=== PATIENT | male | born 1955 | race Caucasian/White ===

== ENCOUNTER 2022-10-14 14:48 | Observation (INO) | payer MEDICARE, OTHER, SELFPAY ==
[2022-10-14] VITALS (27 sets, daily range): BP systolic 155–195; BP diastolic 73–95; PULSE 69–83; RESP 18–20; TEMP 36.6–36.8; O2SAT 95–98; BMI 30.1; BMI 29.9
--- NOTE | 2022-10-14 15:17 | CRLHL7_ITS ---
For Patients: As a result of the Century Cures Act, medical imaging exams and procedure reports are released immediately into your electronic medical record. You may view this report before your referring provider. If you have questions, please contact your health care provider. Dictated by: Benigno Dunbar MD @ 10/14/2022 15:46:20 (Electronically Signed)
[2022-10-14 15:43] LABS: Basophils Percent Auto 0.5 % (0.0-3.0); Eosinophils Percent Auto 1.6 % (0.0-7.0); Hematocrit 42.2 % (37.0-53.0); Hemoglobin* 14.3 gm/dL (13.5-17.5); Lymphocytes Percent Auto 31.3 % (20-44); Mean Corpuscular HGB Conc 34 gm/dL (32-36); Mean Corpuscular Hemoglobin 32 pg (26-34); Mean Corpuscular Volume 94 fL (80-100); Monocytes Percent Auto 14.3 % (0.0-11.0); Neutrophils Percent Auto 52.3 % (42.0-72.0); Platelet Count* 129 K/uL (140-440); RDW Coefficient of Variation % 13.8 % (11.5-15.5); White Blood Count* 3.84 K/uL (4.50-11.00)
[2022-10-14 15:46] LABS: Troponin, Point-of-Care* 0.01 ng/ml (0.01-0.04)
[2022-10-14 15:47] LABS: Slide Review Reflex No
[2022-10-14 15:56] LABS: Chloride* 109 mmol/L (96-114); Sodium* 137 mmol/L (135-149)
[2022-10-14 15:57] LABS: Potassium* 4.2 mmol/L (3.6-5.1)
[2022-10-14 15:59] LABS: Aspartate Amino Transferase* 22 U/L (12-35); Bilirubin Direct* 0.2 mg/dL (0.0-0.5); Bilirubin Total* 0.6 mg/dL (0.1-1.5); Carbon Dioxide* 25 mmol/L (20-32); Creatinine* 0.9 mg/dL (0.5-1.5); Estimated Glomerular Filt Rate 93 ml/min; Total Protein* 6.7 g/dL (6.0-8.3)
[2022-10-14 16:00] LABS: Alanine Aminotransferase* 18 U/L (4-50); Alkaline Phosphatase* 88 U/L (40-150); Blood Urea Nitrogen* 16 mg/dL (7-30); Calcium* 8.9 mg/dL (8.4-10.6); D Dimer Quantitative* 0.78 ug/ml (0.00-0.50); Glucose* 86 mg/dL (60-115)
[2022-10-14 16:03] LABS: C Reactive Protein* < 0.5 mg/dL (0.5-1.0)
[2022-10-14 16:10] LABS: NT Pro B Type NatriureticPept* 202 pg/mL
[2022-10-14] MEDS: ASPIRIN 81 MG TAB.CHEW 324 MG PO (16:16)
--- NOTE | 2022-10-14 16:17 | ED.GENADULT ---
HPI - General Adult General Date Seen: 10/14/22 Chief complaint: Chest Pain Stated complaint: Tightness in Chest Time Seen by Provider: 10/14/22 15:03 Source: patient History of Present Illness HPI narrative: Patient is a 67-year-old male who presents for evaluation of chest tightness. He says that about an hour prior to arrival he was carrying 2 5 gal jugs of care seen which he estimates was about 80 lb. While he was doing this, he says he developed tightness in his central chest which he rates as severe. He says that he put the jugs down, and after about 2 minutes the tightness resolved. It was associated with shortness of breath, and a little bit of lightheadedness. He did not have any fainting. No nausea, he says that he felt like he would maybe might break into a sweat but he did not. He notes that over the past couple of weeks he has been having more difficulty with exertion. He says he will get very mild chest tightness when he goes up a flight of stairs for example, any thinks that he has subconsciously has altered his behavior so that he is exerting himself less as a result. He does note that he has a history of ND in his mid 40s, he says that his symptoms currently do not feel like what he remembers his ND feeling like. He says that in his mid 50s he was having some nausea and lightheadedness, had an angiogram and a couple of stents were placed at that time. A couple of years ago, he had some symptoms that led to a stress test which he reports was unremarkable. He does note that he has had some extra phlegm in his throat with eating the past couple of weeks, but otherwise has not had upper respiratory symptoms. Has not run fevers. Has had a little bit of a cough. Continues to smoke. He has not had lower extremity swelling or pain. He has a history of arterial surgery and both lower extremities. He has a history of small-bowel obstruction and hernia surgery. Related Data Home Medications Medication Instructions Recorded Confirmed aspirin 81 mg tablet,delayed 162 mg PO DAILY 10/14/22 10/14/22 release (Adult Low Dose Aspirin) atorvastatin 40 mg tablet 40 mg PO HS 10/14/22 10/14/22 citalopram 20 mg tablet 20 mg PO DAILY 10/14/22 10/14/22 losartan 100 mg tablet 100 mg PO DAILY 10/14/22 10/14/22 nitroglycerin 0.4 mg sublingual 0.4 mg sublingual Q5M PRN chest 10/14/22 10/14/22 tablet pain tamsulosin 0.4 mg capsule 0.4 mg PO DAILY 10/14/22 10/14/22 Allergies Allergy/AdvReac Type Severity Reaction Status Date / Time No Known Drug Allergies Allergy Verified 10/14/22 14:58 Review of Systems Status of ROS: Reports: 10 or more systems reviewed and unremarkable except as noted in History and below [facility] Medical History (Updated 10/14/22 @ 19:34 by Ming Reeder MD) Coronary artery disease Diverticulitis Hyperlipidemia Hypertension Peripheral vascular disease Postoperative urinary retention Small bowel obstruction Tobacco use disorder Surgical History (Updated 10/14/22 @ 19:28 by Ming Reeder MD) History of aorto-femoral bypass History of incisional hernia repair Family History (Updated 10/14/22 @ 19:29 by Ming Reeder MD) Father Coronary artery disease Mother Coronary artery disease Brother Coronary artery disease Social History (Updated 10/14/22 @ 19:30 by Ming Reeder MD) Narrative: Patient is , 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 Code status is full. Ongoing cigarette smoking with greater than 40 pack-year history. Does not drink alcohol or use recreational drugs. Highest level of school completed/degree received: some college, no degree Smoking Status: Current every day smoker What tobacco products do you use: cigarettes Smoking packs per day: 1 Smoking cigarettes per day: 20.0 Years smoked: 40 Smoking pack-years: 40.00 Do you use any of these nicotine containing products: None Second hand tobacco smoke exposure: Yes How often do you have a drink containing alcohol: never How often do you have six or more drinks on one occasion: Never AUDIT-C Alcohol total score: 0 Non-prescribed substance use: denies use Caffeine: Yes service: No Exam Narrative: Exam Narrative: Vital signs as noted above. In general, an alert, well-appearing patient. Head: Normocephalic, atraumatic. Eyes: Pupils are equal reactive. Extraocular movements are full. Conjunctivae are normal. ENT: Mucous membranes are moist. Throat is normal. Neck: Supple without lymphadenopathy. Heart: Regular rate and rhythm. No murmur or rub. Lungs: Clear bilaterally. No increased work of breathing, crackles or wheezes. Abdomen: Soft and nontender. No organomegaly. Extremities: Well perfused. No edema. No calf tenderness. Pulses intact. Neurologic: Patient is alert and oriented to person and place. Speech is fluent. Face is symmetric. Moves all extremities equally. Affect: Normal. Skin: Warm and dry. Well perfused. Const: Vital Signs, click to edit/add: Vital Signs - 24 hr 10/14/22 14:59 10/14/22 14:58 10/14/22 16:01 Temperature 98.3 F Pulse Rate Pulse Rate [Apical ] 83 73 Respiratory Rate 20 18 Blood Pressure [Ri ght Upper Arm] 176/77 H 155/73 H Pulse Oximetry 98 97 95 Oxygen Delivery Me thod Room Air Room Air 10/14/22 15:51 10/14/22 16:00 Temperature Pulse Rate 74 76 Pulse Rate [Apical ] Respiratory Rate Blood Pressure [Ri ght Upper Arm] Pulse Oximetry 95 95 Oxygen Delivery Me thod Documenting provider has reviewed patient's vital signs: yes Course Course Hospital Course: On arrival, patient had an EKG which by my review shows a normal sinus rhythm, ventricular rate of 92 beats per minute. No acute ST segment changes. EKG is unremarkable. His initial point of care troponin is 0.01. Given his exertional symptoms over the past couple of weeks, certainly there is a concern for new anginal symptoms. Other possibilities would include pneumonia, pulmonary embolism, pulmonary edema, upper respiratory infection, anemia, bronchospasm. Patient's labs show a mildly depressed white blood cell count of 3.8, hemoglobin is 14.3. Platelets are mildly low at 129. His D-dimer is slightly elevated at 0.78, though given his age, lack of high clinical suspicion, likelihood of angina as a more reasonable explanation of his symptoms, I do not think he needs further evaluation for pulmonary embolism. He is not hypoxic or tachycardic, and does not have other risk factors for pulmonary embolism. Metabolic panel is unremarkable. LFTs are normal and CRP is less than 0.5. COVID, flu, RSV are all negative. Troponin at time 0 and 2 hours is negative, patient was without further complaints while here. Heart score is 6, placing him in the moderate risk category. Symptoms are concerning for new angina in the setting of someone with known coronary artery disease. I did talk with the primary special educator on-call at [facility], who felt the patient should be admitted and should not be discharged with out having had evocative testing of some kind. I am seeing him on Saturday, which means that stress testing here would not be available until Saturday. [facility] do not have any bed at this time, though [facility] was willing to put him on their wait list. At this time, plan is to admit him to [place], if [facility] gets bed in the near future he could be transferred there for stress testing tomorrow. Otherwise, he will have a stress test here on Saturday. Continue to trend troponins. Patient was given an aspirin here in the ER. Given negative troponins I did not give other medications for non STEMI. Vital Signs Vital signs: Initial Vital Signs Pulse Oximetry 97 10/14/22 14:58 Vital Signs Pulse Oximetry 97 10/14/22 14:58 Temperature 97.9 F 10/15/22 15:00 Pulse Rate 78 10/15/22 17:21 Respiratory Rate 16 10/15/22 15:00 Blood Pressure 148/71 H 10/15/22 15:00 Pulse Oximetry 96 10/15/22 15:00 Oxygen Delivery Method 10/15/22 15:00 Medical Decision Making Lab Data Labs: Lab Results 10/14/22 10/14/22 10/14/22 Range/Units 15:30 15:30 15:30 WBC 3.84 L (4.50-11.00) K/uL RBC 4.50 (4.30-5.90) m/uL Hgb 14.3 (13.5-17.5) gm/dL Hct 42.2 (37.0-53.0) % MCV 94 (80-100) fL MCH 32 (26-34) pg MCHC 34 (32-36) gm/dL RDW Coeff of [place] 13.8 (11.5-15.5) % Plt Count 129 L (140-440) K/uL Neut % (Auto) 52.3 (42.0-72.0) % Lymph % (Auto) 31.3 (20-44) % [place] % (Auto) 14.3 H (0.0-11.0) % Eos % (Auto) 1.6 (0.0-7.0) % Baso % (Auto) 0.5 (0.0-3.0) % Neut # (Auto) 2.00 (1.7-7.0) K/uL Lymph # (Auto) 1.20 (0.90-2.90) K/uL [place] # (Auto) 0.50 (0.00-0.90) K/UL Eos # (Auto) 0.10 (0.00-0.50) K/uL Baso # (Auto) 0.00 (0.00-0.30) K/uL Abs Immat Gran (auto) 0.00 (0.00-0.30) K/uL Imm/Tot Granulo (auto) 0.0 % D-Dimer Quant (PE/DVT) 0.78 H (0.00-0.50) ug/ml Sodium 137 (135-149) mmol/L Potassium 4.2 (3.6-5.1) mmol/L Chloride 109 (96-114) mmol/L Carbon Dioxide 25 (20-32) mmol/L BUN 16 (7-30) mg/dL Creatinine 0.9 (0.5-1.5) mg/dL Estimated Creat Clear 73.00 Estimated GFR 93 ml/min Glucose 86 (60-115) mg/dL Calcium 8.9 (8.4-10.6) mg/dL Total Bilirubin 0.6 (0.1-1.5) mg/dL Direct Bilirubin 0.2 (0.0-0.5) mg/dL AST 22 (12-35) U/L ALT 18 (4-50) U/L Alkaline Phosphatase 88 (40-150) U/L C-Reactive Protein < 0.5 L (0.5-1.0) mg/dL NT-Pro-B Natriuret Pep 202 pg/mL Total Protein 6.7 (6.0-8.3) g/dL Albumin 4.0 (3.3-5.0) g/dL SARS-CoV-2 (PCR) (Negative) Influenza Type A (PCR) (Negative) Influenza Type B (PCR) (Negative) RSV (PCR) (Negative) POC Troponin I (0.01-0.04) ng/ml 10/14/22 10/14/22 10/14/22 Range/Units 15:30 15:30 17:25 WBC (4.50-11.00) K/uL RBC (4.30-5.90) m/uL Hgb (13.5-17.5) gm/dL Hct (37.0-53.0) % MCV (80-100) fL MCH (26-34) pg MCHC (32-36) gm/dL RDW Coeff of [place] (11.5-15.5) % Plt Count (140-440) K/uL Neut % (Auto) (42.0-72.0) % Lymph % (Auto) (20-44) % [place] % (Auto) (0.0-11.0) % Eos % (Auto) (0.0-7.0) % Baso % (Auto) (0.0-3.0) % Neut # (Auto) (1.7-7.0) K/uL Lymph # (Auto) (0.90-2.90) K/uL [place] # (Auto) (0.00-0.90) K/UL Eos # (Auto) (0.00-0.50) K/uL Baso # (Auto) (0.00-0.30) K/uL Abs Immat Gran (auto) (0.00-0.30) K/uL Imm/Tot Granulo (auto) % D-Dimer Quant (PE/DVT) (0.00-0.50) ug/ml Sodium (135-149) mmol/L Potassium (3.6-5.1) mmol/L Chloride (96-114) mmol/L Carbon Dioxide (20-32) mmol/L BUN (7-30) mg/dL Creatinine (0.5-1.5) mg/dL Estimated Creat Clear Estimated GFR ml/min Glucose (60-115) mg/dL Calcium (8.4-10.6) mg/dL Total Bilirubin (0.1-1.5) mg/dL Direct Bilirubin (0.0-0.5) mg/dL AST (12-35) U/L ALT (4-50) U/L Alkaline Phosphatase (40-150) U/L C-Reactive Protein (0.5-1.0) mg/dL NT-Pro-B Natriuret Pep pg/mL Total Protein (6.0-8.3) g/dL Albumin (3.3-5.0) g/dL SARS-CoV-2 (PCR) Negative SARS-CoV-2 (Negative) Influenza Type A (PCR) Negative PCR FLU A (Negative) Influenza Type B (PCR) Negative PCR FLU B (Negative) RSV (PCR) Negative PCR RSV (Negative) POC Troponin I 0.01 0.01 (0.01-0.04) ng/ml Discharge Plan Discharge Clinical Impression: Unstable angina pectoris Patient Disposition: Admitted As Inpatient Condition: Stable
[2022-10-14 16:25] LABS: PCR FLU A Negative PCR FLU A (Negative); PCR FLU B Negative PCR FLU B (Negative); PCR RSV Negative PCR RSV (Negative)
[2022-10-14 16:26] LABS: SARS PCR* Negative SARS-CoV-2 (Negative)
[2022-10-14 17:39] LABS: Troponin, Point-of-Care* 0.01 ng/ml (0.01-0.04)
--- NOTE | 2022-10-14 18:34 | ED.NURSE ---
hs aware of admission. has been up to void.
--- NOTE | 2022-10-14 18:41 | ED.NURSE ---
dr glez in in the room interviewing Walter. is at bs.
--- NOTE | 2022-10-14 19:16 | PM.IMHP1 ---
Hospitalist- H&P: HPI History of Present Illness Date Seen: 10/14/22 Chief complaint: Tightness in Chest Narrative: David Leach is a 67 year old male with known coronary disease admitted to the hospital with increasing chest tightness. Patient reports over the last 2 weeks he has had onset of worsening fatigue, exertional dyspnea and chest tightness. Today he was carrying 2- 5 gal jugs weighing about 80 lb when he had onset of fairly severe chest tightness and dyspnea. He stopped and put the jugs down. It took at least 2 minutes for his chest tightness and dyspnea to resolve. He reports being less active in the last 2 weeks because of exertional dyspnea and chest tightness. Review of Systems Narrative: He reports he has generally been doing well except as noted above. Specifically denies fever, cough, cold, rest chest pain, nausea, vomiting, abdominal pain, bowel or bladder problems, bleeding or clotting problems. [facility] Medical History (Updated 10/14/22 @ 19:34 by Ming Reeder MD) Coronary artery disease Diverticulitis Hyperlipidemia Hypertension Peripheral vascular disease Postoperative urinary retention Small bowel obstruction Tobacco use disorder Surgical History (Updated 10/14/22 @ 19:28 by Ming Reeder MD) History of aorto-femoral bypass History of incisional hernia repair Family History (Updated 10/14/22 @ 19:29 by Ming Reeder MD) Father Coronary artery disease Mother Coronary artery disease Brother Coronary artery disease Social History (Updated 10/14/22 @ 19:30 by Ming Reeder MD) Narrative: Patient is , 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 Code status is full. Ongoing cigarette smoking with greater than 40 pack-year history. Does not drink alcohol or use recreational drugs. Smoking Status: Current every day smoker What tobacco products do you use: cigarettes Smoking packs per day: 1 Smoking cigarettes per day: 20.0 Years smoked: 40 Smoking pack-years: 40.00 Do you use any of these nicotine containing products: None Second hand tobacco smoke exposure: Yes How often do you have a drink containing alcohol: never How often do you have six or more drinks on one occasion: Never AUDIT-C Alcohol total score: 0 Non-prescribed substance use: denies use service: No Meds Home Medications and Allergies Home Medications Medication Instructions Recorded Confirmed Type aspirin 81 mg tablet,delayed 162 mg PO DAILY 10/14/22 10/14/22 History release (Adult Low Dose Aspirin) atorvastatin 40 mg tablet 40 mg PO HS 10/14/22 10/14/22 History citalopram 20 mg tablet 20 mg PO DAILY 10/14/22 10/14/22 History losartan 100 mg tablet 100 mg PO DAILY 10/14/22 10/14/22 History nitroglycerin 0.4 mg sublingual 0.4 mg sublingual Q5M PRN chest 10/14/22 10/14/22 History tablet pain tamsulosin 0.4 mg capsule 0.4 mg PO DAILY 10/14/22 10/14/22 History Allergies Allergy/AdvReac Type Severity Reaction Status Date / Time No Known Drug Allergies Allergy Verified 10/14/22 14:58 Exam Narrative: Exam Narrative: He is alert and appears in no distress. Currently without significant symptoms. Eyes are normal. Oropharynx normal. Neck is supple without mass or adenopathy. No jugular venous distension. Respirations are clear to auscultation. Cardiovascular: S1, S2, regular rate and rhythm. No murmur gallop or rub. Abdomen: Bowel sounds active. Abdomen is soft without tenderness or mass. Well-healed incision from aortic surgery without evidence of incisional hernia. External genitalia normal. Extremities with intact pedal pulses. No edema. Moves all 4 extremities well. No rash. Const: Vital Signs, click to edit/add: Vital Signs - 24 hr 10/14/22 14:59 10/14/22 14:58 10/14/22 16:01 Temperature 98.3 F Pulse Rate Pulse Rate [Apical ] 83 73 Respiratory Rate 20 18 Blood Pressure Blood Pressure [Ri ght Upper Arm] 176/77 H 155/73 H Pulse Oximetry 98 97 95 Oxygen Delivery Me thod Room Air Room Air 10/14/22 15:51 10/14/22 16:00 10/14/22 16:01 Temperature Pulse Rate 74 76 75 Pulse Rate [Apical ] Respiratory Rate Blood Pressure 155/73 H Blood Pressure [Ri ght Upper Arm] Pulse Oximetry 95 95 96 Oxygen Delivery Me thod 10/14/22 16:15 10/14/22 16:30 10/14/22 16:32 Temperature Pulse Rate 78 74 70 Pulse Rate [Apical ] Respiratory Rate Blood Pressure 162/82 H Blood Pressure [Ri ght Upper Arm] Pulse Oximetry 96 95 96 Oxygen Delivery Me thod 10/14/22 16:45 10/14/22 17:00 10/14/22 17:02 Temperature Pulse Rate 73 75 74 Pulse Rate [Apical ] Respiratory Rate Blood Pressure 169/86 H Blood Pressure [Ri ght Upper Arm] Pulse Oximetry 96 96 96 Oxygen Delivery Me thod 10/14/22 17:15 10/14/22 17:30 10/14/22 17:32 Temperature Pulse Rate 74 71 72 Pulse Rate [Apical ] Respiratory Rate Blood Pressure 171/89 H Blood Pressure [Ri ght Upper Arm] Pulse Oximetry 95 96 97 Oxygen Delivery Me thod 10/14/22 17:45 10/14/22 18:00 10/14/22 18:02 Temperature Pulse Rate 74 71 69 Pulse Rate [Apical ] Respiratory Rate Blood Pressure 165/83 H Blood Pressure [Ri ght Upper Arm] Pulse Oximetry 96 97 97 Oxygen Delivery Me thod 10/14/22 18:15 10/14/22 18:30 10/14/22 18:32 Temperature Pulse Rate 73 72 73 Pulse Rate [Apical ] Respiratory Rate Blood Pressure 176/80 H Blood Pressure [Ri ght Upper Arm] Pulse Oximetry 97 98 98 Oxygen Delivery Me thod 10/14/22 18:45 10/14/22 19:00 10/14/22 19:02 Temperature Pulse Rate 74 71 77 Pulse Rate [Apical ] Respiratory Rate Blood Pressure 174/94 H Blood Pressure [Ri ght Upper Arm] Pulse Oximetry 98 98 96 Oxygen Delivery Me thod Documenting provider has reviewed patient's vital signs: yes Hospitalist - H&P: Result Labs Labs: Short CBC 10/14/22 Range/Units 15:30 WBC 3.84 L (4.50-11.00) K/uL Hgb 14.3 (13.5-17.5) gm/dL Hct 42.2 (37.0-53.0) % Plt Count 129 L (140-440) K/uL BMP 10/14/22 15:30 Sodium 137 Potassium 4.2 Chloride 109 Carbon Dioxide 25 BUN 16 Creatinine 0.9 Glucose 86 Calcium 8.9 Liver Function 10/14/22 Range/Units 15:30 Total Bilirubin 0.6 (0.1-1.5) mg/dL Direct Bilirubin 0.2 (0.0-0.5) mg/dL AST 22 (12-35) U/L ALT 18 (4-50) U/L Alkaline Phosphatase 88 (40-150) U/L Albumin 4.0 (3.3-5.0) g/dL Assessment and Plan Assessment and plan (1) Unstable angina pectoris: Problem comment: Accelerating pattern of exertional dyspnea and chest tightness consistent with progression of coronary disease. Normal troponin so far. Cardiology recommends stress test before discharge. Status: Acute (2) Coronary artery disease: Problem comment: In 1999 he had an inferior STEMI with 2 stents placed RCA and RPAV. In 2009 he had an angiogram for unstable angina showing patent stents with a new LAD lesion 80% and distal RCA lesion 80%. STAR to both. Status: Acute (3) Tobacco use disorder: Problem comment: Encouraged cessation. Nicotine inhaler and patches Status: Acute (4) Hypertension: Problem comment: Blood pressure mildly elevated today. Continue to observe and initiate additional antihypertensive therapy cautiously. Status: Acute Plan 67-year-old male with longstanding coronary artery disease admitted to the hospital with progression of angina over the last 2 weeks. Troponins negative so far. [facility] Cardiology recommends stress test prior to discharge. Will make arrangements here, probably on Saturday. Monitor for recurrent symptoms. Monitor vitals and repeat troponin. Total time today is 65 minutes, 40 minutes in coordination of care discussing with patient and and other providers evaluation and management of coronary disease.
--- NOTE | 2022-10-14 19:29 | ED.NURSE ---
report to vaishali stokes. to 259 via w.c.
[2022-10-14] MEDS: NICOTINE 21 MG PATCH 1 PATCH TRANSDERMA (21:17)
[2022-10-14] MEDS: ATORVASTATIN CALCIUM 40 MG TABLET PO (21:19)
[2022-10-14] MEDS: ENOXAPARIN 40 MG/0.4 ML INJ SUBCUT (21:19)
[2022-10-15] VITALS (8 sets, daily range): BP systolic 148–179; BP diastolic 71–99; PULSE 61–80; RESP 16–18; TEMP 36.5–36.8; O2SAT 93–96
--- NOTE | 2022-10-15 05:08 | PC.NURSE ---
Admission note: Pt arrived at the unit on W/C accompanied by ER staff. Pt was conscious, alert and oriented on arrival. Denied any pain except minimal tightness to the chest, no SOB, Cough and N/V/D. V/S Stable except high Bp of 197/95. Telemetry monitoring in place. Pt is independent in room. Pt confirmed of feeling anxious r/t hospital environment and disease condition. Education about disease condition given and oriented to room and hospital routine.
[2022-10-15 06:57] LABS: Troponin I* < 0.01 ng/mL (0.01-0.04)
[2022-10-15] MEDS: ASPIRIN 81 MG TABLET EC 162 MG PO (09:11)
[2022-10-15] MEDS: TAMSULOSIN HCL 0.4 MG CAPSULE PO (09:11)
[2022-10-15] MEDS: CITALOPRAM HYDROBROMIDE 20 MG TABLET PO (09:11)
[2022-10-15] MEDS: LOSARTAN POTASSIUM 50 MG TABLET 100 MG PO (09:11)
--- NOTE | 2022-10-15 12:47 | P.IMPN_ITS ---
Progress Note: A&P Assessment and plan (1) Unstable angina pectoris: Problem details: Accelerating pattern of exertional dyspnea and chest tightness consistent with progression of coronary disease. Normal troponin so far. Cardiology recommends stress test before discharge. Status: Acute (2) Coronary artery disease: Problem details: In 1999 he had an inferior STEMI with 2 stents placed RCA and RPAV. In 2009 he had an angiogram for unstable angina showing patent stents with a new LAD lesion 80% and distal RCA lesion 80%. STAR to both. Status: Acute (3) Tobacco use disorder: Problem details: Encouraged cessation. Nicotine inhaler and patches Status: Acute (4) Hypertension: Problem details: Blood pressure mildly elevated today. Continue to observe and initiate additional antihypertensive therapy cautiously. Status: Acute Plan Plan 10/15 Hypertension: start norvasc, add prn hydralazine; check BMP tomorrow UA: stress test tomorrow; discussed with [facility] patient still on waitlist Dispo: if stress test negative discharge to home tomorrow Subjective Date Seen: 10/15/22 Interval history: patient denies sob denies chest pain has intermittent chest tightness vs pressure; but currently pain/pressure free Exam Narrative: Exam Narrative: Gen: NAD HEENT: NCAT EOMI MMM CV: RRR s1 s2 LCTAB Abd: soft, nt, nd Neuro: AOX3 CN intact Const: Vital Signs, click to edit/add: Vital Signs - 24 hr 10/14/22 14:59 10/14/22 14:58 10/14/22 16:01 Temperature 98.3 F Pulse Rate Pulse Rate [Apical ] 83 73 Pulse Rate [Right Pulse Oximeter] Respiratory Rate 20 18 Blood Pressure Blood Pressure [Ri ght Arm] Blood Pressure [Ri ght Upper Arm] 176/77 H 155/73 H Pulse Oximetry 98 97 95 Oxygen Delivery Me thod Room Air Room Air 10/14/22 15:51 10/14/22 16:00 10/14/22 16:01 Temperature Pulse Rate 74 76 75 Pulse Rate [Apical ] Pulse Rate [Right Pulse Oximeter] Respiratory Rate Blood Pressure 155/73 H Blood Pressure [Ri ght Arm] Blood Pressure [Ri ght Upper Arm] Pulse Oximetry 95 95 96 Oxygen Delivery Me thod 10/14/22 16:15 10/14/22 16:30 10/14/22 16:32 Temperature Pulse Rate 78 74 70 Pulse Rate [Apical ] Pulse Rate [Right Pulse Oximeter] Respiratory Rate Blood Pressure 162/82 H Blood Pressure [Ri ght Arm] Blood Pressure [Ri ght Upper Arm] Pulse Oximetry 96 95 96 Oxygen Delivery Me thod 10/14/22 16:45 10/14/22 17:00 10/14/22 17:02 Temperature Pulse Rate 73 75 74 Pulse Rate [Apical ] Pulse Rate [Right Pulse Oximeter] Respiratory Rate Blood Pressure 169/86 H Blood Pressure [Ri ght Arm] Blood Pressure [Ri ght Upper Arm] Pulse Oximetry 96 96 96 Oxygen Delivery Me thod 10/14/22 17:15 10/14/22 17:30 10/14/22 17:32 Temperature Pulse Rate 74 71 72 Pulse Rate [Apical ] Pulse Rate [Right Pulse Oximeter] Respiratory Rate Blood Pressure 171/89 H Blood Pressure [Ri ght Arm] Blood Pressure [Ri ght Upper Arm] Pulse Oximetry 95 96 97 Oxygen Delivery Ca thod 10/14/22 17:45 10/14/22 18:00 10/14/22 18:02 Temperature Pulse Rate 74 71 69 Pulse Rate [Apical ] Pulse Rate [Right Pulse Oximeter] Respiratory Rate Blood Pressure 165/83 H Blood Pressure [Ri ght Arm] Blood Pressure [Ri ght Upper Arm] Pulse Oximetry 96 97 97 Oxygen Delivery Ca thod 10/14/22 18:15 10/14/22 18:30 10/14/22 18:32 Temperature Pulse Rate 73 72 73 Pulse Rate [Apical ] Pulse Rate [Right Pulse Oximeter] Respiratory Rate Blood Pressure 176/80 H Blood Pressure [Ri ght Arm] Blood Pressure [Ri ght Upper Arm] Pulse Oximetry 97 98 98 Oxygen Delivery Ca thod 10/14/22 18:45 10/14/22 19:00 10/14/22 19:02 Temperature Pulse Rate 74 71 77 Pulse Rate [Apical ] Pulse Rate [Right Pulse Oximeter] Respiratory Rate Blood Pressure 174/94 H Blood Pressure [Ri ght Arm] Blood Pressure [Ri ght Upper Arm] Pulse Oximetry 98 98 96 Oxygen Delivery Ca thod 10/14/22 19:03 10/14/22 19:15 10/14/22 19:35 Temperature 97.9 F Pulse Rate 72 74 Pulse Rate [Apical ] Pulse Rate [Right Pulse Oximeter] 76 Respiratory Rate 18 Blood Pressure Blood Pressure [Ri ght Arm] 195/95 H Blood Pressure [Ri ght Upper Arm] Pulse Oximetry 96 96 96 Oxygen Delivery Me thod Room Air 10/14/22 19:35 10/14/22 23:00 10/14/22 23:00 Temperature 98.1 F Pulse Rate 73 Pulse Rate [Apical ] Pulse Rate [Right Pulse Oximeter] 72 Respiratory Rate 18 18 Blood Pressure Blood Pressure [Ri ght Arm] 173/74 H Blood Pressure [Ri ght Upper Arm] Pulse Oximetry 96 95 Oxygen Delivery Me thod Room Air Room Air 10/15/22 03:00 10/15/22 07:00 10/15/22 07:00 Temperature 97.7 F 97.8 F Pulse Rate 66 Pulse Rate [Apical ] Pulse Rate [Right Pulse Oximeter] 75 61 Respiratory Rate 18 18 Blood Pressure Blood Pressure [Ri ght Arm] 169/77 H 166/78 H Blood Pressure [Ri ght Upper Arm] Pulse Oximetry 93 94 Oxygen Delivery Ca thod Room Air Room Air 10/15/22 11:00 Temperature 97.9 F Pulse Rate Pulse Rate [Apical ] Pulse Rate [Right Pulse Oximeter] 80 Respiratory Rate 18 Blood Pressure Blood Pressure [Ri ght Arm] 177/99 H Blood Pressure [Ri ght Upper Arm] Pulse Oximetry 93 Oxygen Delivery Me thod Room Air Labs Labs: Laboratory Results - last 24 hr 10/14/22 10/14/22 10/14/22 15:30 15:30 15:30 WBC 3.84 L RBC 4.50 Hgb 14.3 Hct 42.2 MCV 94 MCH 32 MCHC 34 RDW Coeff of [place] 13.8 Plt Count 129 L Neut % (Auto) 52.3 Lymph % (Auto) 31.3 [place] % (Auto) 14.3 H Eos % (Auto) 1.6 Baso % (Auto) 0.5 Neut # (Auto) 2.00 Lymph # (Auto) 1.20 [place] # (Auto) 0.50 Eos # (Auto) 0.10 Baso # (Auto) 0.00 Abs Immat Gran (auto) 0.00 Imm/Tot Granulo (auto) 0.0 D-Dimer Quant (PE/DVT) 0.78 H Sodium 137 Potassium 4.2 Chloride 109 Carbon Dioxide 25 BUN 16 Creatinine 0.9 Estimated Creat Clear 73.00 Estimated GFR 93 Glucose 86 Calcium 8.9 Total Bilirubin 0.6 Direct Bilirubin 0.2 AST 22 ALT 18 Alkaline Phosphatase 88 Troponin I C-Reactive Protein < 0.5 L NT-Pro-B Natriuret Pep 202 Total Protein 6.7 Albumin 4.0 SARS-CoV-2 (PCR) Influenza Type A (PCR) Influenza Type B (PCR) RSV (PCR) POC Troponin I 10/14/22 10/14/22 10/14/22 15:30 15:30 17:25 WBC RBC Hgb Hct MCV MCH MCHC RDW Coeff of [place] Plt Count Neut % (Auto) Lymph % (Auto) [place] % (Auto) Eos % (Auto) Baso % (Auto) Neut # (Auto) Lymph # (Auto) [place] # (Auto) Eos # (Auto) Baso # (Auto) Abs Immat Gran (auto) Imm/Tot Granulo (auto) D-Dimer Quant (PE/DVT) Sodium Potassium Chloride Carbon Dioxide BUN Creatinine Estimated Creat Clear Estimated GFR Glucose Calcium Total Bilirubin Direct Bilirubin AST ALT Alkaline Phosphatase Troponin I C-Reactive Protein NT-Pro-B Natriuret Pep Total Protein Albumin SARS-CoV-2 (PCR) Negative SARS-CoV-2 Influenza Type A (PCR) Negative PCR FLU A Influenza Type B (PCR) Negative PCR FLU B RSV (PCR) Negative PCR RSV POC Troponin I 0.01 0.01 10/15/22 05:50 WBC RBC Hgb Hct MCV MCH MCHC RDW Coeff of [place] Plt Count Neut % (Auto) Lymph % (Auto) [place] % (Auto) Eos % (Auto) Baso % (Auto) Neut # (Auto) Lymph # (Auto) [place] # (Auto) Eos # (Auto) Baso # (Auto) Abs Immat Gran (auto) Imm/Tot Granulo (auto) D-Dimer Quant (PE/DVT) Sodium Potassium Chloride Carbon Dioxide BUN Creatinine Estimated Creat Clear Estimated GFR Glucose Calcium Total Bilirubin Direct Bilirubin AST ALT Alkaline Phosphatase Troponin I < 0.01 L C-Reactive Protein NT-Pro-B Natriuret Pep Total Protein Albumin SARS-CoV-2 (PCR) Influenza Type A (PCR) Influenza Type B (PCR) RSV (PCR) POC Troponin I
[2022-10-15] MEDS: AMLODIPINE 5 MG TABLET PO (14:43)
--- NOTE | 2022-10-15 19:51 | PC.NURSE ---
PATIENT PLEASANT AND COOPERATIVE, ALERT AND ORIENTED, UP IND WITH STEADY GAIT, WALKED HALLWAYS AND SHOWERED TODAY, PATIENT REPORTING NO CHEST TIGHTNESS WITH ACTIVITY AND NO CHEST TIGHTNESS AT REST, DECINING PAIN IN GENERAL, NO SOB OR LIGHTHEADEDNESS OR DIZZINESS, TOLERATING REGULAR DIET, TELE SHOWING NSR, STRESS ECHO TOMORROW, PATIENT HAS AVOID CAFFEINE THROUGHOUT THE DAY, EDUCATED ON STRESS ECHO ALL QUESTIONS ANSWERED, PATIENT DID EXPRESS FEELING SOMEWHAT ANXIOUS TODAY, ABLE TO TALK WITH PATIENT AND PATIENT ABLE TO TALK WITH DECREASING SOME STRESS PER PATIENT.
[2022-10-15] MEDS: NICOTINE 21 MG PATCH 1 PATCH TRANSDERMA (22:09)
[2022-10-15] MEDS: ENOXAPARIN 40 MG/0.4 ML INJ SUBCUT (22:10)
[2022-10-15] MEDS: ATORVASTATIN CALCIUM 40 MG TABLET PO (22:10)
[2022-10-16] VITALS (9 sets, daily range): BP systolic 129–184; BP diastolic 71–89; PULSE 60–77; RESP 16–18; TEMP 36.1–36.8; O2SAT 94–95
--- NOTE | 2022-10-16 05:06 | PC.NURSE ---
[id number] Pt denied chest pain, sob, headache, lightheaded or dizziness during night, slept well. pt NPO at 0500, nicotine patch to R shoulder
[2022-10-16 06:20] LABS: Chloride* 109 mmol/L (96-114); Potassium* 3.8 mmol/L (3.6-5.1); Sodium* 138 mmol/L (135-149)
[2022-10-16 06:22] LABS: Creatinine* 0.8 mg/dL (0.5-1.5); Estimated Glomerular Filt Rate 96 ml/min
[2022-10-16 06:23] LABS: Blood Urea Nitrogen* 13 mg/dL (7-30); Calcium* 8.9 mg/dL (8.4-10.6); Carbon Dioxide* 24 mmol/L (20-32); Glucose* 90 mg/dL (60-115)
--- NOTE | 2022-10-16 09:00 | CRLHL7_ITS ---
For Patients: As a result of the Century Cures Act, medical imaging exams and procedure reports are released immediately into your electronic medical record. You may view this report before your referring provider. If you have questions, please contact your health care provider. [facility] ??? [facility]ARDIAL PERFUSION SCAN, 10/16/2022 CLINICAL HISTORY: 67-year-old male. Chest pain. Hypertension. Hyperlipidemia. Previous coronary artery stenting x 4. Shortness of breath on exertion. Current smoker. 208 pounds. TECHNIQUE: (Resting SPECT and Stress Gated SPECT with wall motion and ejection fraction) Stress: Treadmill (7 minutes 1 second) Maximum heart rate: 115 bpm (75.5 percent of maximum predicted) Maximum systolic blood pressure: 186 mm/Hg systolic Rate pressure product: 21,390 Dose (Stress/Rest): 30.4 mCi / 8.52 mCi Tc-99m Sestamibi Comparison: None FINDINGS: There is good uptake of activity by the left ventricle. No left ventricular enlargement is noted. There is soft tissue attenuation. There is a small area of mild reversibility involving the base and mid inferior wall. This is consistent with mild ischemia. No other significant fixed or reversible defects are identified. The gated images demonstrate a normal left ventricular ejection fraction of 58 percent. No regional wall motion abnormalities are identified. IMPRESSION: 1) There is a small area of mild ischemia in the base and mid inferior wall. 2) Please note that this study was performed with submaximal stress. This may cause this study to underestimate the true degree of myocardial ischemia. 3) Normal left ventricular ejection fraction of 58 percent. BENTON TRUONG M.D. Transcribed: 1:31 p.m. [email or web address] cheo/Dictated by: Benton Truong MD @ 10/16/2022 1:58:00 PM (Electronically Signed)
[2022-10-16] MEDS: LOSARTAN POTASSIUM 50 MG TABLET 100 MG PO (10:16)
[2022-10-16] MEDS: ASPIRIN 81 MG TABLET EC 162 MG PO (10:17)
[2022-10-16] MEDS: TAMSULOSIN HCL 0.4 MG CAPSULE PO (10:17)
[2022-10-16] MEDS: AMLODIPINE 5 MG TABLET PO (10:17)
[2022-10-16] MEDS: CITALOPRAM HYDROBROMIDE 20 MG TABLET PO (10:18)
[2022-10-16] MEDS: ISOSORBIDE MONONITRATE ER 30 MG TAB PO (12:13)
[2022-10-16] MEDS: METOPROLOL TARTRATE 25 MG TABLET PO (12:13)
--- NOTE | 2022-10-16 14:50 | P.DS_ITS ---
DS: Providers Provider Date Seen: 10/16/22 Date of admission: 10/14/22 19:23 Primary care physician: Altaf Tierney MD Admitting Clinician: Ming Reeder MD Attending Physician on discharge: Ming Reeder MD Date of Discharge: 10/16/22 DS: Diagnosis Discharge Diagnosis (1) Hypertension: Status: Acute Problem details: Blood pressure mildly elevated today. Continue to observe and initiate additional antihypertensive therapy cautiously. (2) Tobacco use disorder: Status: Acute Problem details: Encouraged cessation. Nicotine inhaler and patches (3) Coronary artery disease: Status: Acute Problem details: In 1999 he had an inferior STEMI with 2 stents placed RCA and RPAV. In 2009 he had an angiogram for unstable angina showing patent stents with a new LAD lesion 80% and distal RCA lesion 80%. STAR to both. (4) Unstable angina pectoris: Status: Acute Problem details: Accelerating pattern of exertional dyspnea and chest tightness consistent with progression of coronary disease. Normal troponin so far. Treadmill Myoview, sub maximal, shows mild reversible ischemia in inferior and base. Discussed with Cardiology with outpatient followup plan DS: Summary Hospital Course Hospital Course: 59-year-old male admitted to the hospital with 2 week history of progressive exertional dyspnea and onset of severe chest heaviness while carrying 2-5 gal pails. He put the pails down and the chest heaviness resolved after couple minutes. He came to the emergency room for evaluation as this was reminiscent of how he felt a decade ago when he had angina. Evaluation in the hospital showed normal electrocardiogram and normal troponins. He is hospitalized for stress test. Today he had a Myoview treadmill test. IMPRESSION: 1) There is a small area of mild ischemia in the base and mid inferior wall. 2) Please note that this study was performed with submaximal stress. This may cause this study to underestimate the true degree of myocardial ischemia. 3) Normal left ventricular ejection fraction of 58 percent. After discussion with Cardiology was felt this could be managed as an outpatient. There is no urgent need for angiogram. There continues to be no availability of transfer to tertiary care facilities in this region. Patient has a need for improved blood pressure control, beta-blockade also needed. Status at Discharge Functional status at discharge: independent ambulation Overall status at discharge: patient is back to baseline Time Spent with Patient Time attestation: Total time spent providing and/or coordinating discharge services: Time spent: Greater than 30 minutes Exam Narrative: Exam Narrative: He is alert and appears in no distress. Respirations are clear to auscultation. Cardiovascular S1-S2 regular rate and rhythm. No murmur gallop or rub. Abdomen is soft without tenderness or mass. He is observed to walk in the ward without any discomfort. Const: Vital Signs, click to edit/add: Vital Signs - 24 hr 10/15/22 17:21 10/15/22 15:00 10/15/22 19:00 Temperature 97.9 F 98.2 F Pulse Rate 78 Pulse Rate [Right Pulse Oximeter] 80 75 Respiratory Rate 16 16 Blood Pressure [Ri ght Arm] 148/71 H 163/81 H Pulse Oximetry 96 96 Oxygen Delivery Me thod Room Air Room Air 10/15/22 23:00 10/15/22 23:43 10/16/22 03:00 Temperature 98.2 F 98.2 F Pulse Rate 74 Pulse Rate [Right Pulse Oximeter] 76 73 Respiratory Rate 16 16 Blood Pressure [Ri ght Arm] 179/90 H 184/83 H Pulse Oximetry 93 95 Oxygen Delivery Me thod Room Air Room Air 10/16/22 08:20 10/16/22 07:30 10/16/22 09:36 Temperature 97 F L Pulse Rate 67 Pulse Rate [Right Pulse Oximeter] 67 77 Respiratory Rate 16 18 Blood Pressure [Ri ght Arm] 170/89 H 144/76 H Pulse Oximetry 95 Oxygen Delivery Me thod Room Air Room Air 10/16/22 12:15 10/16/22 13:00 Temperature Pulse Rate Pulse Rate [Right Pulse Oximeter] 74 72 Respiratory Rate Blood Pressure [Ri ght Arm] 146/73 H 133/72 Pulse Oximetry Oxygen Delivery Me thod Documenting provider has reviewed patient's vital signs: yes DS: Data Data Completed and Pending Labs on day of discharge: Labs from last 24 hours 10/16/22 05:56 Sodium 138 Potassium 3.8 Chloride 109 Carbon Dioxide 24 BUN 13 Creatinine 0.8 Estimated Creat Clear 73.00 Estimated GFR 96 Glucose 90 Calcium 8.9 Discharge Plan Discharge Disposition: Home, Self-Care Date of Admission: 10/14/22 19:23 Attending Provider on Discharge: Ming Reeder Primary Care Provider: Altaf Tierney Condition: Stable Anticipated Discharge Date/Time: 10/16/22 15:00 Discharge Medications: New isosorbide mononitrate 30 mg Tablet Extended Release 24 Hr 30 mg PO DAILY Qty: 30 0RF metoprolol succinate [Toprol XL] 50 mg tablet extended release 24 hr 50 mg PO DAILY Qty: 30 2RF Continued atorvastatin 40 mg tablet 40 mg PO HS citalopram 20 mg tablet 20 mg PO DAILY losartan 100 mg tablet 100 mg PO DAILY nitroglycerin 0.4 mg tablet, sublingual 0.4 mg sublingual Q5M PRN (Reason: chest pain) Label Comments: ONE TABLET UNDER TONGUE NEEDED FOR CHEST PAIN EVERY 5 MINUTES NEEDED. DO NOT USE VIAGRA WITHIN 48 HOURS tamsulosin 0.4 mg capsule 0.4 mg PO DAILY aspirin [Adult Low Dose Aspirin] 81 mg tablet,delayed release (DR/EC) 162 mg PO DAILY Discharge Orders: Discharge Order (Routine); Ordered 10/16/22 Ordered By: Ming Reeder Additional Instructions: I encourage you to exercise by walking at a modest level of exertion. Slow down or stop if you feel chest heaviness or shortness of breath. Avoid heavy lifting including shoveling snow until after cardiology followup. If you get chest heaviness or chest pain at rest, return to the emergency department. Follow-up with Cardiology as arranged. The most important thing you can do for your heart is to stop smoking Discharge Diet: Heart Healthy (2 gm sodium, low fat) Follow Up Appointments: Rex Burnette [Other] - 10/30/22 10:00 am (Located inside the [facility].) Altaf Tierney MD [Primary Care Provider] - Forms: [employer] Info Instructions
[2022-10-16] MEDS: METOPROLOL SUCCINATE (XL) 25 MG TAB PO (14:55)
--- NOTE | 2022-10-16 15:16 | ONC.NURNOTE ---
alert and oriented. denies pain or discomfort. stress test with echo in am. additional meds with frequent bp/heart rate checks. with good results. up in ward no lightheadedness or dizziness. hoping to go home this evening.
--- NOTE | 2022-10-16 16:14 | P.STN_ITS ---
Stress Test Note Date Date of test: 10/16/22 Providers Primary care provider: Altaf Tierney Stress test physician: Gonzalez Win Stress Test Note Stress test ordered: Stress Myoview Indication for test: chest pain Results discussion: Patient is 59-year-old gentleman who presents here from inpatient side with a history of chest discomfort, pretest EKG shows ventricular rate of 68 rhythm is sinus, with a blood pressure 144 and 82, following normal protocol he is exercised for a total time of 7 minutes 2nd, test is terminated because of s hortness of breath and fatigue, did not have chest pain, there was some 1-[address] wave depression noted from V5 V6 this through 2 3 and AVF, I would say this consistent with ischemia. This result is communicated to the inpatient physician Dr. Reeder Impression: Positive stress test with inducement of shortness of breath than 1-2 mm of depression inferior laterally. Follow up suggested: Await nuclear images, above his communicated to Dr. Reeder the inpatient physician
--- NOTE | 2022-10-16 18:08 | PC.NURSE ---
Discharge: Patient pleasant and cooperative. Patient vitally stable, lungs clear, BS WNL, IV removed catheter intact. Nicotine removed and discarded in black bin. Patient independent in room and denied pain. Patient signed discharge form and belongings sheet. Patient had no further questions regarding discharge. Patient left the floor by foot at 1641.
== END 2022-10-16 16:41 | disposition home or self-care (01) ==
LOC: ED 18:48 → MEDSURG 19:24
PROVIDERS: Hospitalist; Admitting Provider Family Medicine; Emergency Provider Emergency Medicine; PCP Family Medicine; Visit Provider Family Medicine
DX: I25.110 Atherosclerotic heart disease of native coronary artery with unstable angina pectoris (principal); I10 Essential (primary) hypertension; R07.89 Other chest pain; R53.83 Other fatigue; R06.09 Other forms of dyspnea; Z79.82 Long term (current) use of aspirin; E78.5 Hyperlipidemia, unspecified; R42 Dizziness and giddiness; I25.2 Old myocardial infarction; Z98.890 Other specified postprocedural states; Z87.898 Personal history of other specified conditions; I73.9 Peripheral vascular disease, unspecified; D69.6 Thrombocytopenia, unspecified; R79.89 Other specified abnormal findings of blood chemistry; Z20.822 Contact with and (suspected) exposure to COVID-19; I25.10 Atherosclerotic heart disease of native coronary artery without angina pectoris; Z95.5 Presence of coronary angioplasty implant and graft; Z72.0 Tobacco use
CPT/HCPCS: 36415; 71045; 78452; 80048; 80076; 83880; 84484; 85025; 85379; 86140; 87502; 87634; 87635; 93005; 93016; 93017; 94761; 96372; 99284; 99285; G0378; A9270; A9500; G0379; J1650; S4990

== ENCOUNTER 2024-09-16 12:04 | Outpatient (CLI) | payer MEDICARE, OTHER, SELFPAY | END 2024-09-16 12:05 | disposition home or self-care (01) | LOC: NFLDUCREF 12:05 | PROVIDERS: PCP Family Medicine | DX: L08.9 Local infection of the skin and subcutaneous tissue, unspecified (principal); T14.8XXA Other injury of unspecified body region, initial encounter | CPT/HCPCS: 87070 ==

== ENCOUNTER 2025-07-02 12:47 | Outpatient (CLI) | payer MEDICARE, OTHER, SELFPAY ==
--- NOTE | 2025-07-02 13:00 | MR_ITS ---
[address] [address] Phone:?[phone] Fax:?[phone] Referring Physician Information: Gustavo Asher M.D. [address] [facility] [address] Phone:?[phone] Fax:?[phone] Patient:Harsh Leach D.O.B:?1955 Sex:?Male Phone:?[phone] [facility] MRN:?[id number] Exam Date:?07/02/2025 EXAM: MRI of the LEFT 3RD FINGER, without contrast CLINICAL INFORMATION: Male, 70 years old, with [finger pain. INDICATION: Evaluate for foreign body or abscess. PRIOR SURGERY: None reported. PLAIN FILMS: None available. COMPARISONS: No prior MRIs available. TECHNICAL INFORMATION: Using a 1.5T MR scanner and a localizing surface coil: sagittals: PD, T2 coronals: T1, PD, T2, STIR axials: PD, T2, PDFS SEDATION: None. CONTRAST: None. FINDINGS: Bones: Unremarkable, without stress/occult fracture, marrow edema or mass. Joints: Intact throughout without pathologic narrowing or effusion. Tendons: Flexor and extensor tendons are intact, without rupture or tendinopathy, tenosynovitis or longitudinal splitting. Soft tissues: Moderate generalized soft tissue swelling surrounding the 3rd distal phalanx, with overlying dermal thickening, but without a discrete foreign body or fluid collection (coronal STIR series 5 image 7 and axial PDFS series 4 image 2). The soft tissues are otherwise unremarkable. Collateral ligaments: Collateral ligamentous structures are intact. IMPRESSION: 1. Findings in keeping with a soft tissue contusion versus cellulitis surrounding the 1st distal phalanx. However, there is no evidence of an abscess or foreign body, as clinically questioned. 2. No fracture or osseous stress reaction. 3. No myotendinous abnormality. 4. No ligamentous sprain/tear. BC Electronically signed on 07/02/2025 2:55:00 PM by Mark Holguin M.D.
== END 2025-07-02 12:48 | disposition home or self-care (01) ==
LOC: MRI 12:48
PROVIDERS: PCP Family Medicine; Visit Provider Orthopaedic Surgery
DX: M79.645 Pain in left finger(s) (principal)
CPT/HCPCS: 73218